=== PATIENT | female | born 2000 | race Hispanic/Latino ===

== ENCOUNTER 2019-06-22 14:12 | Emergency (ER) | payer MEDICAID, OTHER ==
[~2019-06-22 14:12] MED LIST: ACYC400T PO; PREN1TAB89 PO; VALA500T PO
== END 2019-06-22 15:00 | disposition home or self-care (01) ==
LOC: EDH 14:12
DX: J00 Acute nasopharyngitis [common cold] (principal)

== ENCOUNTER 2019-09-12 23:14 | Emergency (ER) | payer MEDICAID ==
[2019-09-12] MEDS ORDERED: IBUPROFEN 200 MG TAB ONE (23:31)
== END 2019-09-13 00:22 | disposition home or self-care (01) ==
LOC: EDH 23:14
DX: S40.022A Contusion of left upper arm, initial encounter (principal); V89.2XXA Person injured in unspecified motor-vehicle accident, traffic, initial encounter; Y93.89 Activity, other specified; Y92.488 Other paved roadways as the place of occurrence of the external cause; Y99.8 Other external cause status
CPT/HCPCS: 81025